=== PATIENT | male | born 1980 | race Caucasian/White ===

== ENCOUNTER 2018-03-01 15:03 | Inpatient (IN) ==
[2018-03-10] MEDS ORDERED: amLODIPine 5 MG Tablet ONE (08:11)
[2018-03-10] MEDS ORDERED: Divalproex 500 MG ER Tablet PO ONE (08:12)
[2018-03-10] MEDS ORDERED: Acetaminophen 325 MG Tablet PO PRN (08:40)
[2018-03-10] MEDS ORDERED: Zolpidem Tartrate 5 MG Tablet PO PRN (08:40)
[2018-03-10] MEDS ORDERED: Aluminum/Magnesium/Simethacone Susp 30 ML UDC PO PRN (08:40)
[2018-03-10] MEDS: amLODIPine 5 MG Tablet PO SCH (11:23)
[2018-03-10] MEDS: Divalproex 500 MG ER Tablet PO SCH (11:23)
--- NOTE | 2018-03-10 15:53 | P.PNPSY ---
Subjective Remarks: Patient was seen and case discussed with nursing. Patient is very perseverative for my attention today. He interrupted me 5 times well over seeing other patients. During the interview he is very anxious and then makes various bizarre statements such as he will give me all the money in his bank account. Remains religiously preoccupied. Also is focused on discharge. Mental Status Examination Appearance: Appropriate Consciousness: Alert Orientation: Person, Place, Date/Time Motor Activity: Normal gait Speech: Hesitant Language: Perseveration Fund of Knowledge: Adequate Attention and Concentration: Easily distracted Memory: Unremarkable Mood: Anxious Affect: Anxious Thought Process & Associations: Loose associations Thought Content: Preoccupations Hallucination Type: None Delusion Type: Other (Anglican) Suicidal Ideation: No Suicidal Plan: No Suicidal Intention: No Homicidal Ideation: No Homicidal Plan: No Homicidal Intention: No Insight: Poor Judgment: Poor Assessment and Plan - Assessment (1) Schizoaffective disorder, bipolar type Code(s): F25.0 - Schizoaffective disorder, bipolar type Status: Acute - Plan Plan: Estimated LOS: [] days Continue current treatment plan Justification for Continued Inpatient Stay: Patient would decompensate in a less restrictive setting
--- NOTE | 2018-03-11 08:42 | P.DSPSY ---
Psychiatry Discharge Summary Inpatient Psychiatric care?: Yes Advance Directives: No Mental Health Advance Directive: No Health Care Proxy: No - Admission Admission Date: March 01, 2018 18:36 - Admission Diagnosis (1) Schizoaffective disorder, bipolar type Code(s): F25.0 - Schizoaffective disorder, bipolar type Brief History: Patient is a 38-year-old man, single, domiciled with mother, unemployed on SSI, with a past psychiatric history of schizoaffective disorder bipolar type, multiple psychiatric admissions, one previous suicide attempt 2007 no history of self-injurious behavior, with a past medical history significant for hypertension hyperlipidemia, who presented to the ED voluntarily for a "head check" was noted to be disorganized upon evaluation which patient was admitted to the inpatient psychiatry for further evaluation and management. Discussion with nursing staff reported the patient noted with manic behavior, religiously preoccupied, inappropriate sexual comments and noted to be talking to self and be internally preoccupied. Patient was found lying hospital bed noted B, cooperative. Patient during interview was noted to be internally preoccupied at times with some thought blocking and responding to internal stimuli throughout interview. Patient appears to be some evidence at times mentioned that he has come down from [place] 2 weeks ago to stay with his mother throughout interview also in the taoist comments stating "it was not my life". Patient reports having slept well with no decrease in sleep recently, reports adequate appetite but did report increased energy recently mood being "happy". Patient denies any irritability denies any risky behavior but did endorse having racing thoughts and noted to have sexually inappropriate behavior. Patient also noted to have some pressured speech during interview. Patient also responding to internal stimuli admitted to auditory hallucinations but did not elaborate. Patient reports having some nonadherence to medications recently. Family psychiatric history: Denies Past psychiatric history: Previous psychiatric diagnosis schizoaffective disorder, bipolar type, multiple psychiatric admissions, one previous suicide attempt 2007, no history of self-injurious behavior, no outpatient mental provider at this time, patient denies any history of abuse. Current medication regimen included Depakote, lithium, Abilify, trazodone, Cogentin. Substance history: Patient denies any current use of any drugs, reports remote history use of cocaine in 1994 once. Past medical history: Hypertension hyperlipidemia Allergies: NKDA Social history: Born in [place] recently from [place], came down to [place] 2 weeks ago to stay with mom, single, no children, unemployed on SSI, mother is payee, no background or asked to firearms. Collateral contact his mother, Adry Alex [phone]. Tobacco Use In Past 30 Days: No How Often Do You Have a Drink Containing Alcohol: Monthly or less Hospital Course: Patient was admitted to a locked, inpatient psychiatric unit. Appropriate precautions were in place throughout patient's hospital stay. Patient was seen and examined on the unit by psychiatry and also visited by counselor. Psychotropic medications were adjusted. Patient tolerated medications well without side effects. Patient had improvement in presenting psychiatric symptomatology during the course of his hospital stay. There was no evidence of any suicidality or homicidality on the inpatient unit. There was no evidence of self-care deficit. Collateral information was obtained from the patient's mother. On the day of discharge: Patient seen and examined with nurse. Chart reviewed. Case discussed with nursing staff. No behavioral issues noted overnight. On my examination today, the patient is in good spirits. He is requesting discharge from the inpatient psychiatric unit today. He denies any suicidal or homicidal ideation, intent or plan. Mood remains very slightly elevated but the patient denies any racing thoughts nor can I elicit any other severe manic/hypomanic or depressive symptoms. He denies any audiovisual hallucinations. I can elicit no paranoia, no ideas of reference, no other delusional material. He continues to exhibit a mild taoist preoccupation. He denies side effects from medications. No acute physical complaints. I have obtained collateral information from the patient's mother on the day of discharge. She has been in contact with the patient and believes that he is at his psychiatric baseline. She is requesting that the patient be discharged home today. I have recommended that she secure the home environment of potential means of harm to self or others including but not limited to guns, knives and medications out of an abundance of caution. I have educated mother regarding mechanisms in place to have patient brought back to the psychiatric emergency room for further evaluation, should the need arise. Weighing the relevant factors and based on the available evidence, I municipal court judge that the patient does not meet criteria for involuntary psychiatric hospitalization. There is no evidence of imminent risk of harm to self or others from mental illness, nor is there evidence of self-care deficit to substantiate involuntary psychiatric hospitalization. He is requesting discharge from the inpatient psychiatric unit today, and I have no basis to retain him over his objection. Patient will be discharged home today with psychiatric follow-up as arranged by counselor. Patient is also to follow up with primary care. I have counseled the patient to abstain from any substances of abuse. I have counseled the patient regarding warning signs for need to return to the psychiatric emergency room as part of a general safety plan. - Discharge Discharge Date: 03/11/18 - Discharge Diagnosis (1) Schizoaffective disorder, bipolar type Diagnosis: Principal (improved versus admission) Code(s): F25.0 - Schizoaffective disorder, bipolar type Status: Acute Discharge Disposition: Home - Discharge Instructions Discharge Diet: Regular Diet Activities You Can Perform: Weight Bearing As Tolerat - Discharge Time > 30 minutes Mental Status Examination Appearance: Appropriate Consciousness: Alert Orientation: x4 Motor Activity: Normal gait, Other (No motor abnormalities noted) Speech: Unremarkable Language: Adequate Fund of Knowledge: Adequate Attention and Concentration: Other (Fair) Memory: Unremarkable Mood: Other (Slightly elevated but much more stable versus admission) Affect: Appropriate Thought Process & Associations: Circumstantial (Much more linear versus admission) Thought Content: Appropriate Hallucination Type: None Delusion Type: None Suicidal Ideation: No Suicidal Plan: No Suicidal Intention: No Homicidal Ideation: No Homicidal Plan: No Homicidal Intention: No Mental Status Exam Remarks: Insight and judgment are perhaps fair to poor Discharge/Advance Care Plan - Results Vital Signs: Last Vital Signs Temp 98.0 F 03/11/18 06:17 Pulse 75 03/11/18 06:17 Resp 20 03/11/18 06:17 BP 130/71 03/11/18 06:17 Pulse Ox 100 03/11/18 06:17 Lab Results: Laboratory Results Hemoglobin A1c 4.7 % (4.3-6.0) 03/02/18 08:12 Triglycerides 61 MG/DL (42-150) 03/02/18 08:12 Cholesterol 211 MG/DL (120-200) H 03/02/18 08:12 HDL Cholesterol 65.0 MG/DL (40.0-60.0) H 03/02/18 08:12 Valproic Acid 89 MCG/ML (50-100) 03/05/18 08:15 [place] 0.2 MEQ/L (0.5-1.5) L 03/01/18 16:05 Summary of Procedures: None done Pending Results: None - Medications Number of antipsychotic medications at discharge: 2 Appropriate use of more than 1 antipsychotic med: Justification other than those in allowable values 1-3, document here: (Required multiple antipsychotics for stabilization) - Discharge Care Plan Goals to Promote Your Health: * To prevent worsening of your condition and complications * To maintain your health at the optimal level Directions to Meet Your Goals: Take your medications as prescribed Follow your dietary instruction Follow activity as directed Keep your appointments as scheduled Take your immunizations and boosters as scheduled If your symptoms worsen call your PCP, if no PCP go to Urgent Care Center or Emergency Room For 02/04 questions related to your inpatient stay or results of tests pending at discharge, please contact Dr. Eb Mendez MD at [phone] Smoking is Dangerous to Your Health. Avoid second hand smoking
[2018-03-11] MEDS: amLODIPine 5 MG Tablet PO SCH (09:44)
[2018-03-11] MEDS: Divalproex 500 MG ER Tablet PO SCH (09:44)
== END 2018-03-11 02:00 | disposition home or self-care (01) ==
LOC: UNDODISIN → H270 18:36
PROVIDERS: ADMIT Psychiatry & Neurology Psychiatry; ATTEND Psychiatry & Neurology Psychiatry